=== PATIENT | female | born 1985 | race African-American/Black ===

== ENCOUNTER 2017-08-30 16:06 | Emergency (ER) | payer OTHER ==
[2017-08-30 16:29] LABS: Bilirubin Negative (Negative); Blood, Urine Negative (Negative); Glucose, Urine (Dipstick) Negative (Negative); Ketone, Urine Negative (Negative); Nitrite Negative (Negative); Protein, Urine (Dipstick) Negative (Neg-Trace)
[2017-08-30 18:15] LABS: #Eosinphils 0.1 thou/uL (0.0-0.7); #Lymphocytes 2.5 thou/uL (1.20-3.40); #Monocytes 0.6 thou/uL (0.11-0.59); #Neutrophils 4.8 thou/uL (1.40-6.50); %Basophils 0.5 % (0.0-1.0); %Eosinophils 1.3 % (0.0-10.0); %Lymphocytes 31.6 % (21.0-51.0); %Monocytes 6.9 % (0.0-10.0); Hematocrit 34.8 % (36.0-47.0); Mean Platelet Volume 7.4 fL (7.4-10.4)
[2017-08-30 18:33] LABS: ALT (SGPT) 10 U/L (8-55); AST (SGOT) 14 U/L (5-34); Alkaline Phosphatase 137 U/L (40-150); Anion Gap 11 mmol/L (10-20); BUN (Urea Nitrogen) 13 mg/dL (7.0-18.7); Bilirubin, Total 0.2 mg/dL (0.2-1.2); Calc. Creatinine Clearance 0 mL/min (70-130); Calcium 9.7 mg/dL (7.8-10.44); Carbon Dioxide 27 mmol/L (22-29); Chloride 105 mmol/L (98-107); Estimated GFR-MDRD Greater than 90; Globulin 4.8 g/dL (2.4-3.5); Protein, Total 8.5 g/dL (6.0-8.3)
== END 2017-08-30 21:28 | disposition home or self-care (01) ==
LOC: ERS 16:06
DX: R30.0 Dysuria (principal); K21.9 Gastro-esophageal reflux disease without esophagitis; F17.210 Nicotine dependence, cigarettes, uncomplicated; F31.9 Bipolar disorder, unspecified
CPT/HCPCS: 36415; 80053; 81003; 84703; 85025; 99406

== ENCOUNTER 2017-09-06 09:31 | Emergency (ER) | payer OTHER ==
--- NOTE | 2017-09-06 10:39 | RAD ---
PORTABLE CHEST ONE VIEW: Date: 09-06-17 Time: 10:25 a.m. History: Cough, congestion, fever, chills, shortness of breath, throat pain. FINDINGS: Comparison is made with exam of 01-10-16. The heart size is normal. The lungs are expanded without focal areas of consolidation, pneumothorax o r pleural effusions. IMPRESSION: No acute process. POS: [id number]
[2017-09-06] MEDS ORDERED: Dexamethasone 4 mg/ml Vial ONE ×2 (10:49)
[2017-09-06] MEDS ORDERED: Acetaminophen 500 MG TAB ONE (10:49)
== END 2017-09-06 11:25 | disposition home or self-care (01) ==
LOC: ERS 09:31
DX: J11.1 Influenza due to unidentified influenza virus with other respiratory manifestations (principal); K21.9 Gastro-esophageal reflux disease without esophagitis; F17.210 Nicotine dependence, cigarettes, uncomplicated; J45.909 Unspecified asthma, uncomplicated
CPT/HCPCS: 71045; 87804; 94640; 96374; J1100

== ENCOUNTER 2017-12-05 11:56 | Emergency (ER) | payer OTHER ==
[2017-12-05] MEDS ORDERED: Dexamethasone 4 mg/ml Vial ONE (13:35)
[2017-12-05] MEDS ORDERED: Ibuprofen 800 MG TAB ONE (13:46)
== END 2017-12-05 13:57 | disposition home or self-care (01) ==
LOC: ERS 11:56
DX: J02.9 Acute pharyngitis, unspecified (principal); F31.9 Bipolar disorder, unspecified; F17.210 Nicotine dependence, cigarettes, uncomplicated; K21.9 Gastro-esophageal reflux disease without esophagitis; Z79.899 Other long term (current) drug therapy
CPT/HCPCS: 87081; 87430; 96372; J1100

== ENCOUNTER 2020-03-28 00:18 | Emergency (ER) | payer OTHER ==
[2020-03-28 00:56] LABS: Bilirubin Negative (Negative); Blood, Urine Negative (Negative); Clarity Clear (Clear); Glucose, Urine (Dipstick) Normal (Negative); Ketone, Urine Negative (Negative); Leukocyte Negative Leu/uL (Negative); Nitrite Negative (Negative); Protein, Urine (Dipstick) Negative (Neg-Trace); Urobilinogen Normal mg/dL (Less than 2)
== END 2020-03-28 03:55 | disposition home or self-care (01) ==
LOC: ERS 00:18
DX: G89.29 Other chronic pain (principal); M54.5 Low back pain; R30.0 Dysuria; K21.9 Gastro-esophageal reflux disease without esophagitis; F17.210 Nicotine dependence, cigarettes, uncomplicated
CPT/HCPCS: 81003; 99283

== ENCOUNTER 2020-11-10 08:54 | Emergency (ER) | payer OTHER ==
[2020-11-10] MEDS ORDERED: Ketorolac Tromethamine 30 MG/ML VIAL ONE (10:44)
== END 2020-11-10 11:28 | disposition home or self-care (01) ==
LOC: ERS 08:54
DX: M25.511 Pain in right shoulder (principal); K21.9 Gastro-esophageal reflux disease without esophagitis; F17.210 Nicotine dependence, cigarettes, uncomplicated; G89.29 Other chronic pain
CPT/HCPCS: 96372; J1885

== ENCOUNTER 2021-03-23 16:35 | Emergency (ER) | payer OTHER ==
[2021-03-23] MEDS ORDERED: Morphine 4 MG/ML VIAL ONE (16:53)
[2021-03-23] MEDS ORDERED: predniSONE 20 MG TAB ONE (16:53)
[2021-03-23] MEDS ORDERED: Famotidine/PF 20 mg/2ml Vial ONE (16:54)
[2021-03-23] MEDS ORDERED: EPINEPHrine 1 MG/ML VIAL ONE ×2 (17:20→17:23)
[2021-03-23] MEDS ORDERED: EPINEPHrine 1 MG/10 ML Abboject SYRINGE ONE (17:20)
== END 2021-03-23 19:38 | disposition home or self-care (01) ==
LOC: ERS 16:35
DX: T63.461A Toxic effect of venom of wasps, accidental (unintentional), initial encounter (principal); K21.9 Gastro-esophageal reflux disease without esophagitis; F17.210 Nicotine dependence, cigarettes, uncomplicated; L50.0 Allergic urticaria
CPT/HCPCS: 99284; J0171; J2270; J7512; S0028

== ENCOUNTER 2022-03-16 00:02 | Emergency (ER) | payer OTHER ==
[2022-03-16] MEDS ORDERED: Prochlorperazine 10 MG/2 ML VIAL ONE ×2 (00:50→00:51)
[2022-03-16] MEDS ORDERED: diphenhydrAMINE 50 MG/ML VIAL ONE (00:50)
[2022-03-16] MEDS ORDERED: Acetaminophen 500 MG TAB ONE (00:50)
[2022-03-16 01:13] LABS: #Eosinphils 0.1 thou/uL (0.0-0.7); #Lymphocytes 2.4 thou/uL (1.20-3.40); #Monocytes 0.5 thou/uL (0.11-0.59); #Neutrophils 3.6 thou/uL (1.40-6.50); %Basophils 0.2 % (0.0-1.0); %Eosinophils 1.3 % (0.0-10.0); %Lymphocytes 36.6 % (21.0-51.0); %Monocytes 7.4 % (0.0-10.0); %Neutrophils 54.5 % (42.0-75.0); Hemoglobin 11.3 g/dL (12.0-16.0); Mean Corpuscular HGB CONC 32.6 g/dL (32.0-36.0); Mean Corpuscular Hemoglobin 28.8 pg (27.0-31.0); Mean Corpuscular Volume 88.3 fL (78.0-98.0); Platelet Count 229 thou/uL (130-400); RBC Distribution Width 12.1 % (11.5-14.5); Red Blood Cell (RBC) Count 3.92 mill/uL (4.20-5.40); White Blood Cell (WBC) Count 6.7 thou/uL (4.8-10.8)
[2022-03-16 01:28] LABS: Pregnancy Test - Urine (BHCG) Negative (Negative); Pregu Control Background? CLEAR/WHITE (CLR/WHITE); Pregu Control Bar Appear? YES (CONTROL BAR)
[2022-03-16 01:29] LABS: Bilirubin Negative (Negative); Blood, Urine Negative (Negative); Clarity Clear (Clear); Glucose, Urine (Dipstick) Normal (Negative); Ketone, Urine Negative (Negative); Leukocyte Negative Leu/uL (Negative); Nitrite Negative (Negative); Protein, Urine (Dipstick) 10 mg/dL (Neg-Trace); Specific Gravity 1.024 (1.002-1.036); Specific Gravity, Urine 1.024 (1.002-1.036); Urobilinogen Normal mg/dL (Less than 2)
[2022-03-16 01:38] LABS: ALT (SGPT) 9 U/L (8-55); AST (SGOT) 14 U/L (5-34); Albumin 3.7 g/dL (3.5-5.0); Alkaline Phosphatase 87 U/L (40-110); Anion Gap 13 mmol/L (10-20); BUN (Urea Nitrogen) 11 mg/dL (7.0-18.7); Bilirubin, Total Less than 0.2 mg/dL (0.2-1.2); Calc. Creatinine Clearance 0 mL/min (70-130); Calcium 9.2 mg/dL (7.8-10.44); Carbon Dioxide 25 mmol/L (22-29); Chloride 105 mmol/L (98-107); Estimated GFR 80; Globulin 3.6 g/dL (2.4-3.5); Glucose 80 mg/dL (70-105); Lipase 34 U/L (8-78); Potassium 3.7 mmol/L (3.5-5.1); Protein, Total 7.3 g/dL (6.0-8.3); Sodium 139 mmol/L (136-145)
== END 2022-03-16 04:26 | disposition home or self-care (01) ==
LOC: ERS 00:02
DX: G43.909 Migraine, unspecified, not intractable, without status migrainosus (principal); R10.84 Generalized abdominal pain; K21.9 Gastro-esophageal reflux disease without esophagitis; F17.210 Nicotine dependence, cigarettes, uncomplicated
CPT/HCPCS: 70450; 71045; 80053; 81003; 81025; 83690; 84484; 85025; 93005; 96365; 96366; 96375; J0780; J1200

== ENCOUNTER 2022-06-03 10:55 | Emergency (ER) | payer OTHER | END 2022-06-03 13:18 | disposition home or self-care (01) | LOC: ERS 10:55 | DX: K04.7 Periapical abscess without sinus (principal); K59.00 Constipation, unspecified; F17.210 Nicotine dependence, cigarettes, uncomplicated | CPT/HCPCS: 99283 ==

== ENCOUNTER 2023-06-18 | Emergency (ER) | payer OTHER | END 2023-06-19 03:50 | disposition home or self-care (01) | LOC: ERS | DX: S16.1XXA Strain of muscle, fascia and tendon at neck level, initial encounter (principal); S30.0XXA Contusion of lower back and pelvis, initial encounter; R07.89 Other chest pain; F17.210 Nicotine dependence, cigarettes, uncomplicated; W18.30XA Fall on same level, unspecified, initial encounter | CPT/HCPCS: 72072; 72100; 72125; 72220; 96372 ==